=== PATIENT | female | born 1985 | race African-American/Black ===

== ENCOUNTER 2017-03-20 18:19 | Emergency (ER) | payer OTHER ==
[~2017-03-20] VITALS: Ht 167.6 cm; Wt 106.6 kg
== END 2017-03-20 21:51 | disposition home or self-care (01) ==
LOC: CED 18:19
DX: J02.9 Acute pharyngitis, unspecified (principal); J45.909 Unspecified asthma, uncomplicated; Z88.0 Allergy status to penicillin
CPT/HCPCS: 87651; 96372; 99283; J1100; J1885